=== PATIENT | female | born 1940 | race Caucasian/White ===

== ENCOUNTER → 2016-06-23 | Outpatient (CLI) | payer MEDICARE, MEDICAID ==
[~2016-06-23] MED LIST: ACETAMINOPHEN500 M1 PO; ANTIBIOTIC O500 U/GM TP; ASPI-COR81 M1 PO; B-121000 MCG PO; B121000 MCG/1 IM; BACTRIM DS 8001 TA1 PO; CALCIUM CITRATE1 TA4 PO; CARDIZEM CD240 MG PO; CENTRUM SILVER1 TA1 PO; CLARITIN10 MG PO; CLEOCIN150 MG PO; DAYPRO600 M1 PO; FLEXERIL5 MG PO; FLUTICASON0.05 MG/AC NS; GABAPENTIN100 MG PO; KCL PO; KEFLEX500 M1 PO; KLOR-CON M2020 ME1 PO; LAMISIL250 MG PO; LASIX20 MG PO; LOMOTIL 0.025 M1 TA1 PO; Lovenox60 MG/0.6 PO; NEEDLE1 EA10 MC; OMEPRAZOLE MAGN20 MG PO; PAXIL20 M1 PO; PRILOSEC20 M1 PO; TYLENOL325 M1 PO; VITAMIN B1100 MCG/ML IM; VITAMIN B11000 MCG/M IM; VITAMIN D2000 IU PO; VITAMIN D32000 I1 PO; VOLTAREN50 M1 PO; VOLTAREN50 MG PO; XARE20MG PO; XARELTO15 M1 PO; ZOFRAN ODT4 MG SL
== END | disposition home or self-care (01) ==
LOC: MAMMO 13:05
DX: N64.4 Mastodynia (principal); C90.00 Multiple myeloma not having achieved remission; S32.009A Unspecified fracture of unspecified lumbar vertebra, initial encounter for closed fracture; X58.XXXA Exposure to other specified factors, initial encounter; Y93.89 Activity, other specified; Y92.89 Other specified places as the place of occurrence of the external cause; Y99.8 Other external cause status

== ENCOUNTER 2016-07-04 19:22 | Emergency (ER) | payer MEDICARE, MEDICAID ==
[~2016-07-04] VITALS: Ht 147.3 cm; Wt 68.0 kg
[2016-07-04] MEDS ORDERED: CLINDAMYCIN HC300 MG PO (20:12)
== END 2016-07-04 20:16 | disposition home or self-care (01) ==
LOC: ED 19:22
DX: J01.90 Acute sinusitis, unspecified (principal); H66.91 Otitis media, unspecified, right ear; Z88.0 Allergy status to penicillin; Z88.1 Allergy status to other antibiotic agents; Z88.6 Allergy status to analgesic agent; Z88.8 Allergy status to other drugs, medicaments and biological substances; Z91.013 Allergy to seafood; Z79.899 Other long term (current) drug therapy

== ENCOUNTER 2017-02-06 10:24 | Emergency (ER) | payer MEDICARE, MEDICAID ==
[~2017-02-06 10:24] MED LIST changes: +CLINDAMYCIN HC300 MG PO
[2017-02-06] MEDS ORDERED: ROBITUSSIN DM 105 ML PO (11:07)
[2017-02-06] MEDS ORDERED: FLONASE ALLERG9.9 ML NAS (11:07)
[2017-02-06] MEDS ORDERED: PREDNISONE10 MG PO (11:07)
[2017-02-06] MEDS ORDERED: CLARITIN10 MG PO (11:08)
== END 2017-02-06 12:19 | disposition home or self-care (01) ==
LOC: ED 10:24
DX: J02.9 Acute pharyngitis, unspecified (principal); R03.0 Elevated blood-pressure reading, without diagnosis of hypertension; G89.29 Other chronic pain; M19.90 Unspecified osteoarthritis, unspecified site; Z86.711 Personal history of pulmonary embolism; Z98.890 Other specified postprocedural states; Z79.899 Other long term (current) drug therapy; Z88.0 Allergy status to penicillin; Z88.6 Allergy status to analgesic agent; Z88.3 Allergy status to other anti-infective agents; Z88.8 Allergy status to other drugs, medicaments and biological substances; Z91.013 Allergy to seafood

== ENCOUNTER → 2017-07-01 | Outpatient (CLI) | payer MEDICARE, MEDICAID ==
[~2017-07-01] MED LIST changes: +FLONASE ALLERG9.9 ML NAS; +PREDNISONE10 MG PO; +ROBITUSSIN DM 105 ML PO
== END | disposition home or self-care (01) ==
LOC: MAMMO 05-05 10:20
DX: Z12.31 Encounter for screening mammogram for malignant neoplasm of breast (principal)

== ENCOUNTER 2017-08-16 14:30 | Inpatient (IN) | payer MEDICARE, MEDICAID ==
[~2017-08-16] VITALS: Ht 147.3 cm; Wt 69.9 kg
[2017-08-16 14:32] VITALS: BP 132/70
[2017-08-16 15:18] LABS: HEMATOCRIT 37.3 % (37.0-47.0); HEMOGLOBIN 12.2 g/dl (12.0-16.0); MEAN CELL VOLUME 91.2 fl (81.0-99.0); MEAN CORPUSCULAR HGB 29.8 pg (27.0-31.0); MEAN CORPUSCULAR HGB CONC 32.7 g/dl (33.0-37.0); MEAN PLATELET VOLUME 9.5 fl (9.6-12.3); PLATELET COUNT AUTOMATED 228 10*3/uL (130-400); RED BLOOD COUNT 4.09 10*6/uL (4.10-5.10); RED CELL DISTRI WIDTH 13.4 % (0-14.5); WHITE BLOOD COUNT 7.3 10*3/uL (4.8-10.8)
[2017-08-16 15:36] LABS: ALBUMIN 3.3 gm/dl (3.1-4.5); ALKALINE PHOSPHATASE 87 U/L (45-117); ATYPICAL LYMPHS 2 % (0-0); BUN 15 mg/dl (7-24); CHLORIDE 110 mmol/L (98-107); CREATININE 0.97 mg/dL (0.55-1.02); POTASSIUM 3.3 mmol/L (3.5-5.1); SGOT/AST 13 IU/L (3-35); SGPT/ALT 17 U/L (12-78); SODIUM 144 mmol/L (136-145); TOTAL CELLS COUNTED 100 #CELLS
[2017-08-16 15:37] LABS: BURR CELLS FEW; PLATELET SUFFICIENCY NORMAL (NORMAL); ROULEAUX SLIGHT
[2017-08-16 15:38] LABS: TROPONIN I < 0.015 ng/ml (<0.045)
[2017-08-16 16:37] VITALS: BP 127/70
[2017-08-16 17:29] VITALS: BP 126/65
[2017-08-16] MEDS ORDERED: NEURONTIN100 MG PO (17:56)
[2017-08-16] MEDS ORDERED: AVPAK AZITHROM250 M1 PO (17:57)
[2017-08-16] MEDS ORDERED: ZANTAC 300300 MG PO (17:57)
[2017-08-16] MEDS ORDERED: ZOMETA 4 M4 MG/100 M IV (18:11)
[2017-08-16 18:30] VITALS: BP 140/66
[2017-08-16 20:00] VITALS: BP 115/61
[2017-08-17] VITALS: BP 137/67
[2017-08-17 06:00] LABS: HEMATOCRIT 37.5 % (37.0-47.0); HEMOGLOBIN 11.9 g/dl (12.0-16.0); MEAN CELL VOLUME 92.1 fl (81.0-99.0); MEAN CORPUSCULAR HGB 29.2 pg (27.0-31.0); MEAN CORPUSCULAR HGB CONC 31.7 g/dl (33.0-37.0); MEAN PLATELET VOLUME 9.6 fl (9.6-12.3); PLATELET COUNT AUTOMATED 216 10*3/uL (130-400); RED BLOOD COUNT 4.07 10*6/uL (4.10-5.10); RED CELL DISTRI WIDTH 13.2 % (0-14.5); WHITE BLOOD COUNT 4.6 10*3/uL (4.8-10.8)
[2017-08-17 06:31] LABS: BUN 17 mg/dl (7-24); CHLORIDE 113 mmol/L (98-107); CHOLESTEROL 169 mg/dL (<200); CREATININE 0.73 mg/dL (0.55-1.02); PHOSPHOROUS 2.6 mg/dL (2.5-4.9); SODIUM 146 mmol/L (136-145); TRIGLYCERIDES 44 mg/dl (<150); VLDL CHOLESTEROL 9 mg/dL (6-40)
[2017-08-17 06:40] LABS: FREE T4 1.18 ng/dl (0.76-1.46); HDL CHOLESTEROL 47 mg/dl (40-60); LDL CHOLESTEROL 113 mg/dL (9-159); THYROID STIM HORMONE (HS) 0.431 uIU/ml (0.358-4.75)
[2017-08-17 06:45] LABS: TOTAL CELLS COUNTED 100 #CELLS
[2017-08-17 06:46] LABS: PLATELET SUFFICIENCY NORMAL (NORMAL)
[2017-08-17 07:28] LABS: VITAMIN D, 25-HYDROXY 23.5 ng/mL (30-100)
[2017-08-17 08:00] VITALS: BP 152/88
[2017-08-17 12:00] VITALS: BP 148/76
[2017-08-17 16:00] VITALS: BP 125/71
[2017-08-17 20:00] VITALS: BP 124/57
[2017-08-18] VITALS: BP 127/85
[2017-08-18 07:11] LABS: HEMATOCRIT 36.7 % (37.0-47.0); HEMOGLOBIN 11.6 g/dl (12.0-16.0); MEAN CELL VOLUME 92.7 fl (81.0-99.0); MEAN CORPUSCULAR HGB 29.3 pg (27.0-31.0); MEAN CORPUSCULAR HGB CONC 31.6 g/dl (33.0-37.0); MEAN PLATELET VOLUME 10.1 fl (9.6-12.3); PLATELET COUNT AUTOMATED 255 10*3/uL (130-400); RED BLOOD COUNT 3.96 10*6/uL (4.10-5.10); RED CELL DISTRI WIDTH 13.5 % (0-14.5); WHITE BLOOD COUNT 11.9 10*3/uL (4.8-10.8)
[2017-08-18 07:18] LABS: BUN 25 mg/dl (7-24); CHLORIDE 112 mmol/L (98-107); CREATININE 0.85 mg/dL (0.55-1.02); SODIUM 145 mmol/L (136-145)
[2017-08-18 07:39] LABS: PLATELET SUFFICIENCY NORMAL (NORMAL); TOTAL CELLS COUNTED 100 #CELLS
[2017-08-18 08:00] VITALS: BP 135/75
[2017-08-18] MEDS ORDERED: MUCINEX ER600 MG PO (10:42)
[2017-08-18] MEDS ORDERED: ZITHROMAX250 MG PO (10:42)
[2017-08-18] MEDS ORDERED: BENZONATATE100 M1 PO (10:42)
== END 2017-08-18 12:35 | disposition home or self-care (01) | DRG 194 ==
LOC: ED 14:30 → EDHOLD 16:39 → 4E 16:39 → 5E 16:56 → 4E 16:58
PROVIDERS: Internal Medicine
DX: J18.9 Pneumonia, unspecified organism (principal); E44.0 Moderate protein-calorie malnutrition; E87.0 Hyperosmolality and hypernatremia; E87.8 Other disorders of electrolyte and fluid balance, not elsewhere classified; C90.01 Multiple myeloma in remission; G89.29 Other chronic pain; M54.9 Dorsalgia, unspecified; F41.1 Generalized anxiety disorder; M19.90 Unspecified osteoarthritis, unspecified site; Z96.641 Presence of right artificial hip joint; E87.6 Hypokalemia; E66.09 Other obesity due to excess calories; D64.9 Anemia, unspecified; R73.9 Hyperglycemia, unspecified; E55.9 Vitamin D deficiency, unspecified; Z88.8 Allergy status to other drugs, medicaments and biological substances; Z88.6 Allergy status to analgesic agent; Z88.0 Allergy status to penicillin; Z91.013 Allergy to seafood; Z83.3 Family history of diabetes mellitus; Z79.899 Other long term (current) drug therapy; Z86.718 Personal history of other venous thrombosis and embolism; Z68.32 Body mass index [BMI] 32.0-32.9, adult

== ENCOUNTER 2018-08-24 07:08 | Inpatient (IN) | payer MEDICARE, MEDICAID ==
[2018-08-24] VITALS (10 sets, daily range): BP systolic 118–160; BP diastolic 64–88
[~2018-08-24] VITALS: Ht 147.3 cm; Wt 76.2 kg
[~2018-08-24 07:08] MED LIST changes: +AVPAK AZITHROM250 M1 PO; +BENZONATATE100 M1 PO; +MUCINEX ER600 MG PO; +NEURONTIN100 MG PO; +REVLIMID10 MG PO; +ZANTAC 300300 MG PO; +ZITHROMAX250 MG PO; +ZOMETA 4 M4 MG/100 M IV
--- NOTE | 2018-08-24 07:20 | NUR ---
PT HAS HX MULTIPLE MYELOMA
--- NOTE | 2018-08-24 07:21 | NUR ---
RIGHT SOLE OF FEET FOR A MONTH, "IM TAKING A CREAM FOR IT"
--- NOTE | 2018-08-24 07:25 | NUR ---
PPPX2 DENIES NUMBNESS OR TINGLING IN EXT
[2018-08-24 07:52] LABS: BASO % 0.2 % (0.0-1.0); EOS # 0.3 10*3/uL (0.0-0.4); EOS % 3.8 % (1.0-4.0); HEMOGLOBIN 10.7 g/dl (12.0-16.0); LYMPH # 1.9 10*3/uL (1.3-4.4); LYMPH % 20.6 % (27.0-41.0); MEAN CELL VOLUME 97.6 fl (81.0-99.0); MEAN CORPUSCULAR HGB 31.7 pg (27.0-31.0); MEAN CORPUSCULAR HGB CONC 32.4 g/dl (33.0-37.0); MEAN PLATELET VOLUME 9.5 fl (9.6-12.3); MONO # 1.1 10*3/uL (0.1-1.0); MONO % 12.5 % (3.0-9.0); NEUT # 5.6 10*3/uL (2.3-7.9); NEUT % 61.8 % (47.0-73.0); PLATELET COUNT AUTOMATED 184 10*3/uL (130-400); RED BLOOD COUNT 3.38 10*6/uL (4.10-5.10); RED CELL DISTRI WIDTH 15.4 % (0-14.5)
[2018-08-24 08:11] LABS: ALBUMIN 2.9 gm/dl (3.1-4.5); ALKALINE PHOSPHATASE 97 U/L (45-117); BUN 13 mg/dl (7-24); CHLORIDE 110 mmol/L (98-107); CREATININE 0.95 mg/dL (0.55-1.02); POTASSIUM 3.5 mmol/L (3.5-5.1); SGOT/AST 13 IU/L (3-35); SGPT/ALT 21 U/L (12-78); SODIUM 143 mmol/L (136-145); TOTAL PROTEIN 6.7 gm/dL (6.4-8.2)
--- NOTE | 2018-08-24 08:24 | NUR ---
PT RETURNED FROM US, NO DISTRESS NOTED
--- NOTE | 2018-08-24 10:11 | NUR ---
PT RETURNED FROM CTA
--- NOTE | 2018-08-24 11:53 | NUR ---
A 78, admitted to , under the services of DIMPLE Moody DO with a diagnosis of PE, DVT. Chief complaint is FOOT RASH, THIGH PAIN R/O DVT/ SOB, RIGHT BACK PAIN. Patient arrived via bed from ER. Monitor applied. Initial assessment completed. Vital signs taken and recorded. DIMPLE MOODY DO notified of admission to the unit. Orders received. See assessment for past medical history, medications and allergies. Patient and/or family oriented to unit. [facility] visitation policy reviewed. Clothing/patient valuable form completed. MARCUS ANDUJAR
[2018-08-24] MEDS ORDERED: ASPIR 8181 MG PO (11:54)
[2018-08-24] MEDS ORDERED: ACYCLOVIR400 MG PO (11:55)
[2018-08-24] MEDS ORDERED: DECADRON4 MG PO (11:56)
[2018-08-24] MEDS ORDERED: ANTIFUNGAL113 GM T (12:00)
[2018-08-25] VITALS: BP 148/69
[2018-08-25 06:31] LABS: BASO # 0.1 10*3/uL (0.0-0.1); BASO % 0.7 % (0.0-1.0); EOS # 0.5 10*3/uL (0.0-0.4); EOS % 5.4 % (1.0-4.0); HEMATOCRIT 32.7 % (37.0-47.0); HEMOGLOBIN 10.3 g/dl (12.0-16.0); LYMPH # 2.4 10*3/uL (1.3-4.4); LYMPH % 26.6 % (27.0-41.0); MEAN CELL VOLUME 98.8 fl (81.0-99.0); MEAN CORPUSCULAR HGB 31.1 pg (27.0-31.0); MEAN CORPUSCULAR HGB CONC 31.5 g/dl (33.0-37.0); MONO # 1.1 10*3/uL (0.1-1.0); MONO % 12.8 % (3.0-9.0); NEUT # 4.7 10*3/uL (2.3-7.9); NEUT % 53.5 % (47.0-73.0); PLATELET COUNT AUTOMATED 190 10*3/uL (130-400); RED BLOOD COUNT 3.31 10*6/uL (4.10-5.10); RED CELL DISTRI WIDTH 15.8 % (0-14.5); WHITE BLOOD COUNT 8.8 10*3/uL (4.8-10.8)
[2018-08-25 06:35] LABS: CHLORIDE 112 mmol/L (98-107); POTASSIUM 4.1 mmol/L (3.5-5.1); SODIUM 145 mmol/L (136-145)
[2018-08-25 06:46] LABS: ALBUMIN 2.6 gm/dl (3.1-4.5); ALKALINE PHOSPHATASE 89 U/L (45-117); BUN 12 mg/dl (7-24); CHOLESTEROL 188 mg/dL (<200); CREATININE 0.77 mg/dL (0.55-1.02); HDL CHOLESTEROL 59 mg/dl (40-60); LDL CHOLESTEROL 112 mg/dL (9-159); PHOSPHOROUS 2.9 mg/dL (2.5-4.9); SGOT/AST 12 IU/L (3-35); SGPT/ALT 21 U/L (12-78); THYROID STIM HORMONE (HS) 0.825 uIU/ml (0.358-4.75); TOTAL PROTEIN 6.4 gm/dL (6.4-8.2); TRIGLYCERIDES 87 mg/dl (<150); VLDL CHOLESTEROL 17 mg/dL (6-40)
[2018-08-25 07:49] LABS: VITAMIN D, 25-HYDROXY 15.8 ng/mL (30-100)
[2018-08-25 08:39] LABS: ACT PARTIAL THROMBO TIME 34.1 SECONDS (20.0-32.1)
[2018-08-25 09:34] VITALS: BP 114/58
--- NOTE | 2018-08-25 09:39 | NUR ---
Awake and alert. Rt. Inner knee and lower thigh. warm and painful to palpate. Dr. Pérez in and discharge was discussed.
[2018-08-25] MEDS ORDERED: XARELTO1 EACH PO (09:42)
[2018-08-25 12:00] VITALS: BP 131/74
--- NOTE | 2018-08-25 12:20 | NUR ---
dISCHARGE INSTRUCTION GIVEN INCLUDING THE NEED TO START xARELTO TONITE. pT. VOICED UNDERSTANSING. dISCHARGED TO HOME.
== END 2018-08-25 12:20 | disposition home or self-care (01) | DRG 299 ==
LOC: ED 07:08 → 4E 11:38 → EDHOLD 11:38 → 4E 11:39
PROVIDERS: Emergency Medicine; Internal Medicine; ADMIT Internal Medicine
DX: I82.421 Acute embolism and thrombosis of right iliac vein (principal); I26.99 Other pulmonary embolism without acute cor pulmonale; C90.01 Multiple myeloma in remission; D64.9 Anemia, unspecified; R00.0 Tachycardia, unspecified; B37.2 Candidiasis of skin and nail; E87.8 Other disorders of electrolyte and fluid balance, not elsewhere classified; E83.51 Hypocalcemia; E88.09 Other disorders of plasma-protein metabolism, not elsewhere classified; G89.29 Other chronic pain; M54.6 Pain in thoracic spine; Z96.641 Presence of right artificial hip joint; M19.90 Unspecified osteoarthritis, unspecified site; I10 Essential (primary) hypertension; R73.9 Hyperglycemia, unspecified; E66.9 Obesity, unspecified; F41.1 Generalized anxiety disorder; E53.8 Deficiency of other specified B group vitamins; Z88.0 Allergy status to penicillin; Z88.1 Allergy status to other antibiotic agents; Z88.6 Allergy status to analgesic agent; Z88.8 Allergy status to other drugs, medicaments and biological substances; Z91.013 Allergy to seafood; Z87.01 Personal history of pneumonia (recurrent); Z98.891 History of uterine scar from previous surgery; Z87.891 Personal history of nicotine dependence; Z83.3 Family history of diabetes mellitus; Z86.711 Personal history of pulmonary embolism; Z79.82 Long term (current) use of aspirin; Z79.899 Other long term (current) drug therapy; Z68.35 Body mass index [BMI] 35.0-35.9, adult

== ENCOUNTER 2018-09-01 07:35 | Emergency (ER) | payer MEDICARE, MEDICAID ==
[~2018-09-01] VITALS: Ht 147.3 cm; Wt 75.7 kg
[~2018-09-01 07:35] MED LIST changes: +ACYCLOVIR400 MG PO; +ANTIFUNGAL113 GM T; +ASPIR 8181 MG PO; +DECADRON4 MG PO; +XARELTO1 EACH PO
[2018-09-01 08:04] LABS: BASO # 0.1 10*3/uL (0.0-0.1); BASO % 1.3 % (0.0-1.0); EOS # 0.4 10*3/uL (0.0-0.4); EOS % 6.6 % (1.0-4.0); HEMATOCRIT 34.2 % (37.0-47.0); LYMPH # 1.8 10*3/uL (1.3-4.4); MEAN CELL VOLUME 98.3 fl (81.0-99.0); MEAN CORPUSCULAR HGB 31.6 pg (27.0-31.0); MEAN CORPUSCULAR HGB CONC 32.2 g/dl (33.0-37.0); MEAN PLATELET VOLUME 9.1 fl (9.6-12.3); MONO # 0.7 10*3/uL (0.1-1.0); MONO % 9.8 % (3.0-9.0); NEUT # 3.6 10*3/uL (2.3-7.9); NEUT % 53.8 % (47.0-73.0); PLATELET COUNT AUTOMATED 334 10*3/uL (130-400); RED BLOOD COUNT 3.48 10*6/uL (4.10-5.10); RED CELL DISTRI WIDTH 15.3 % (0-14.5); WHITE BLOOD COUNT 6.7 10*3/uL (4.8-10.8)
[2018-09-01 08:26] LABS: ALBUMIN 2.8 gm/dl (3.1-4.5); ALKALINE PHOSPHATASE 112 U/L (45-117); BUN 11 mg/dl (7-24); CHLORIDE 111 mmol/L (98-107); CREATININE 0.77 mg/dL (0.55-1.02); LIPASE 138 U/L (73-393); POTASSIUM 4.2 mmol/L (3.5-5.1); SGOT/AST 11 IU/L (3-35); SGPT/ALT 16 U/L (12-78); SODIUM 144 mmol/L (136-145)
[2018-09-01 09:53] LABS: BILIRUBIN NEGATIVE (NEGATIVE); BLOOD NEGATIVE (NEGATIVE); CLARITY CLEAR (CLEAR); COLOR YELLOW (YELLOW); GLUCOSE NEGATIVE (NEGATIVE); KETONE NEGATIVE (NEGATIVE); LEUKO ESTERASE NEGATIVE (NEGATIVE); NITRITE NEGATIVE (NEGATIVE); SPECIFIC GRAVITY 1.015 (1.005-1.030); UROBILINOGEN 0.2 E.U./dl (0.2-1.0)
[2018-09-01] MEDS ORDERED: GOOD NEIGHBOR M25 MG PO (10:54)
== END 2018-09-01 11:02 | disposition home or self-care (01) ==
LOC: ED 07:35
PROVIDERS: Emergency Medicine
DX: H83.09 Labyrinthitis, unspecified ear (principal); R26.81 Unsteadiness on feet; R11.0 Nausea; R42 Dizziness and giddiness; I10 Essential (primary) hypertension; E66.9 Obesity, unspecified; M19.90 Unspecified osteoarthritis, unspecified site; Z88.0 Allergy status to penicillin; Z88.6 Allergy status to analgesic agent; Z88.1 Allergy status to other antibiotic agents; Z79.899 Other long term (current) drug therapy; Z88.8 Allergy status to other drugs, medicaments and biological substances; Z87.891 Personal history of nicotine dependence; Z86.718 Personal history of other venous thrombosis and embolism; Z91.018 Allergy to other foods

== ENCOUNTER 2019-07-06 10:44 | Emergency (ER) | payer MEDICARE, MEDICAID ==
[~2019-07-06] VITALS: Ht 149.8 cm; Wt 77.1 kg
[~2019-07-06 10:44] MED LIST changes: +GOOD NEIGHBOR M25 MG PO
== END 2019-07-06 18:40 | disposition home or self-care (01) ==
LOC: ED 10:44
DX: S83.511A Sprain of anterior cruciate ligament of right knee, initial encounter (principal); M19.90 Unspecified osteoarthritis, unspecified site; I10 Essential (primary) hypertension; F41.9 Anxiety disorder, unspecified; Z88.0 Allergy status to penicillin; Z88.8 Allergy status to other drugs, medicaments and biological substances; Z88.1 Allergy status to other antibiotic agents; Z91.013 Allergy to seafood; Z79.899 Other long term (current) drug therapy; Z79.82 Long term (current) use of aspirin; X58.XXXA Exposure to other specified factors, initial encounter; Y93.89 Activity, other specified; Y92.89 Other specified places as the place of occurrence of the external cause; Y99.8 Other external cause status

== ENCOUNTER 2019-07-26 17:37 | Emergency (ER) | payer MEDICARE, MEDICAID ==
[~2019-07-26] VITALS: Ht 149.8 cm; Wt 75.7 kg
[2019-07-26 19:11] LABS: BASO # 0.1 10*3/uL (0.0-0.1); BASO % 1.1 % (0.0-1.0); EOS # 0.2 10*3/uL (0.0-0.4); EOS % 2.6 % (1.0-4.0); HEMATOCRIT 35.9 % (37.0-47.0); LYMPH # 2.1 10*3/uL (1.3-4.4); LYMPH % 32.8 % (27.0-41.0); MEAN CELL VOLUME 95.2 fl (81.0-99.0); MEAN CORPUSCULAR HGB 30.5 pg (27.0-31.0); MEAN PLATELET VOLUME 9.6 fl (9.6-12.3); MONO # 1.3 10*3/uL (0.1-1.0); MONO % 19.6 % (3.0-9.0); NEUT # 2.8 10*3/uL (2.3-7.9); NEUT % 43.6 % (47.0-73.0); PLATELET COUNT AUTOMATED 239 10*3/uL (130-400); RED BLOOD COUNT 3.77 10*6/uL (4.10-5.10); RED CELL DISTRI WIDTH 14.7 % (0-14.5); WHITE BLOOD COUNT 6.5 10*3/uL (4.8-10.8)
[2019-07-26 19:29] LABS: ALBUMIN 3.3 gm/dl (3.1-4.5); ALKALINE PHOSPHATASE 82 U/L (45-117); BUN 13 mg/dl (7-24); CHLORIDE 110 mmol/L (98-107); POTASSIUM 3.9 mmol/L (3.5-5.1); SGOT/AST 8 IU/L (3-35); SGPT/ALT 16 U/L (12-78); SODIUM 142 mmol/L (136-145); TOTAL PROTEIN 7.1 gm/dL (6.4-8.2)
[2019-07-26 19:30] LABS: TROPONIN I < 0.015 ng/ml (<0.045)
== END 2019-07-26 20:19 | disposition home or self-care (01) ==
LOC: ED 17:37
PROVIDERS: Physician Assistant
DX: R60.0 Localized edema (principal); R06.02 Shortness of breath; M19.90 Unspecified osteoarthritis, unspecified site; Z88.0 Allergy status to penicillin; Z88.6 Allergy status to analgesic agent; Z88.1 Allergy status to other antibiotic agents; Z88.8 Allergy status to other drugs, medicaments and biological substances; Z79.899 Other long term (current) drug therapy; Z79.82 Long term (current) use of aspirin; Z87.891 Personal history of nicotine dependence

== ENCOUNTER → 2019-10-09 | Outpatient (CLI) | payer MEDICARE, MEDICAID | END | disposition home or self-care (01) | LOC: MAMMO 09-28 13:30 → RAD 09-28 14:00 → MAMMO 14:00 | DX: Z12.31 Encounter for screening mammogram for malignant neoplasm of breast (principal); Z78.0 Asymptomatic menopausal state ==

== ENCOUNTER 2019-11-07 14:24 | Emergency (ER) | payer OTHER, MEDICAID ==
[~2019-11-07] VITALS: Ht 147.3 cm; Wt 78.9 kg
[2019-11-07] MEDS ORDERED: SEPTDS PO (15:30)
== END 2019-11-07 15:42 | disposition home or self-care (01) ==
LOC: ED 14:24
DX: L02.511 Cutaneous abscess of right hand (principal); Z88.0 Allergy status to penicillin; Z88.8 Allergy status to other drugs, medicaments and biological substances; Z91.013 Allergy to seafood; Z79.899 Other long term (current) drug therapy; Z79.82 Long term (current) use of aspirin

== ENCOUNTER → 2020-01-11 | Outpatient (CLI) | payer OTHER, MEDICAID ==
[~2020-01-11] MED LIST changes: +SEPTDS PO
== END | disposition home or self-care (01) ==
LOC: COVID19 14:06
PROVIDERS: ATTEND Physician Assistant
DX: U07.1 COVID-19 (principal); R69 Illness, unspecified